=== PATIENT | male | born 1965 | race Caucasian/White ===

== ENCOUNTER 2016-12-24 06:54 | Inpatient (IN) | payer MEDICARE, OTHER ==
[2016-12-24] MEDS ORDERED: methylPREDNISolone SOD SUCCI 125 MG/2 ML VIAL IV STA (07:16)
[2016-12-24] MEDS ORDERED: MAGNESIUM SULFATE-D5W PMX 1 GM in DEXTROSE/WATER 1 100ML.BAG IVPB STA (07:16)
[2016-12-24] MEDS ORDERED: IPRATROPIUM-ALBUTEROL 3 ML NEB INHALATION STA ×2 (07:16→09:53)
[2016-12-24] MEDS ORDERED: SODIUM CHLORIDE 0.9% 1,000 ML IV STA (07:16)
--- NOTE | 2016-12-24 07:19 | ED ---
SOB HPI - General Chief Complaint: Shortness of Breath Stated Complaint: diff breathing Time Seen by Provider: 12/24/16 07:00 Source: patient, EMS, RN notes reviewed Mode of arrival: EMS Limitations: no limitations - History of Present Illness Initial Comments: This a 51-year-old male with a history of COPD who smokes 1-1/2 packs of cigarettes per day who presents with complaints of shortness of breath and not feeling well he complains of sweats associated night cough of clear white phlegm no chest pain no nausea vomiting. He was seen several days ago placed on antibiotics and diagnosed with bronchitis but is acting better but he is of course not seizing to smoke either. He has no known heart disease or other symptoms. Other than to say he has tingling to his face and hands. MD Complaint: shortness of breath, cough - Related Data Home Medications Medication Instructions Recorded Confirmed Albuterol Sulfate [Ventolin HFA] 2 puff INHALATION RT-Q4H PRN 12/24/16 12/24/16 Azithromycin [Azithromycin] See Taper PO DAILY 12/24/16 12/24/16 Fluticasone/Salmeterol [Advair 1 puff INHALATION RT-BID 12/24/16 12/24/16 500-50 Diskus] Previous Rx's Medication Instructions Recorded predniSONE 20 mg PO BID #10 tab 12/24/16 Allergies Allergy/AdvReac Type Severity Reaction Status Date / Time Penicillins Allergy Anaphylaxis Verified 12/24/16 07:27 Review of Systems ROS Statement: Those systems with pertinent positive or pertinent negative responses have been documented in the HPI. ROS Other: All systems not noted in ROS Statement are negative. Past Medical History Past Medical History: COPD History of Any Multi-Drug Resistant Organisms: None Reported Past Surgical History: No Surgical Hx Reported Smoking Status: Current every day smoker Past Alcohol Use History: None Reported Past Drug Use History: None Reported General Exam - General Exam Comments Initial Comments: This is a well-developed well-nourished awake alert oriented 3 male Limitations: no limitations General appearance: anxious, in distress Head exam: Present: atraumatic, normocephalic, normal inspection Eye exam: Present: normal appearance, PERRL, EOMI. Absent: scleral icterus, conjunctival injection, periorbital swelling ENT exam: Present: mucous membranes dry Neck exam: Present: normal inspection. Absent: tenderness, meningismus, lymphadenopathy Respiratory exam: Present: accessory muscle use, decreased breath sounds. Absent: respiratory distress, wheezes, rales, rhonchi, stridor Cardiovascular Exam: Present: regular rate, normal rhythm, normal heart sounds. Absent: systolic murmur, diastolic murmur, rubs, gallop, clicks GI/Abdominal exam: Present: soft, normal bowel sounds. Absent: distended, tenderness, guarding, rebound, rigid Extremities exam: Present: normal inspection, full ROM, normal capillary refill. Absent: tenderness, pedal edema, joint swelling, calf tenderness Back exam: Present: normal inspection Neurological exam: Present: alert, oriented X3, CN II-XII intact Psychiatric exam: Present: normal affect, normal mood Skin exam: Present: warm, dry, intact, normal color. Absent: rash Course Vital Signs 12/24/16 12/24/16 12/24/16 06:58 07:33 07:46 Temperature 98.5 F Pulse Rate 105 H 92 88 Respiratory 20 Rate Blood Pressure 155/83 O2 Sat by Pulse 95 Oximetry 12/24/16 07:50 Temperature Pulse Rate 94 Respiratory 22 Rate Blood Pressure 126/78 O2 Sat by Pulse 95 Oximetry - Reevaluation(s) Reevaluation #1: 12/24/16 07:19 We did discuss the need for smoking cessation and risks factors for heart disease lung disease cancers such as breast cancer lung cancer as well as an organ damage. This lasted 3.1 minutes Reevaluation #2: 12/24/16 09:53 I did reevaluate the patient he still somewhat dyspneic refill better he states he was able to the bathroom without becoming dyspneic. He still demonstrates wheezing and diminished breath sounds. I did a long discussion with patient regarding the findings thus far he does have an elevated d-dimer I did recommend due to his current clinical state that he be admitted to the hospital and get a CAT scan or a VQ scan patient is refusing to do either at this time. I did discuss risks with him he does accept the risks of being discharged. I did perform the Prove or disprove that he may not have a pulmonary embolism. He is willing to take the responsibility. He was invited to come back at any time. He is otherwise a follow-up with his doctor and return when necessary Medical Decision Making - Lab Data Result diagrams: 12/24/16 07:38 12/24/16 07:38 Lab Results 12/24/16 12/24/16 12/24/16 Range/Units 07:38 07:38 07:38 WBC 6.9 (3.8-10.6) k/uL RBC 4.36 (4.30-5.90) m/uL Hgb 13.5 (13.0-17.5) gm/dL Hct 39.9 (39.0-53.0) % MCV 91.5 (80.0-100.0) fL MCH 31.1 (25.0-35.0) pg MCHC 34.0 (31.0-37.0) g/dL RDW 14.2 (11.5-15.5) % Plt Count 174 (150-450) k/uL Neutrophils % 67 % Lymphocytes % 22 % Monocytes % 7 % Eosinophils % 1 % Basophils % 0 % Neutrophils # 4.6 (1.3-7.7) k/uL Lymphocytes # 1.5 (1.0-4.8) k/uL Monocytes # 0.5 (0-1.0) k/uL Eosinophils # 0.1 (0-0.7) k/uL Basophils # 0.0 (0-0.2) k/uL PT (9.0-12.0) sec INR (<1.1) APTT (22.0-30.0) sec D-Dimer (<0.60) mg/L FEU Sodium 141 (137-145) mmol/L Potassium 3.8 (3.5-5.1) mmol/L Chloride 105 (98-107) mmol/L Carbon Dioxide 27 (22-30) mmol/L Anion Gap 9 mmol/L BUN 20 (9-20) mg/dL Creatinine 0.77 (0.66-1.25) mg/dL Est GFR (MDRD) Af Amer >60 (>60 ml/min/1.73 sqM) Est GFR (MDRD) Non-Af >60 (>60 ml/min/1.73 sqM) Glucose 125 H (74-99) mg/dL Calcium 8.4 (8.4-10.2) mg/dL Magnesium 2.0 (1.6-2.3) mg/dL Total Bilirubin 0.4 (0.2-1.3) mg/dL AST 14 L (17-59) U/L ALT 25 (21-72) U/L Alkaline Phosphatase 84 (38-126) U/L Total Creatine Kinase 107 (55-170) U/L CK-MB (CK-2) 1.5 (0.0-2.4) ng/mL CK-MB (CK-2) Rel Index 1.4 Troponin I <0.012 (0.000-0.034) ng/mL NT-Pro-B Natriuret Pep pg/mL Total Protein 6.4 (6.3-8.2) g/dL Albumin 3.8 (3.5-5.0) g/dL 12/24/16 12/24/16 Range/Units 07:38 07:38 WBC (3.8-10.6) k/uL RBC (4.30-5.90) m/uL Hgb (13.0-17.5) gm/dL Hct (39.0-53.0) % MCV (80.0-100.0) fL MCH (25.0-35.0) pg MCHC (31.0-37.0) g/dL RDW (11.5-15.5) % Plt Count (150-450) k/uL Neutrophils % % Lymphocytes % % Monocytes % % Eosinophils % % Basophils % % Neutrophils # (1.3-7.7) k/uL Lymphocytes # (1.0-4.8) k/uL Monocytes # (0-1.0) k/uL Eosinophils # (0-0.7) k/uL Basophils # (0-0.2) k/uL PT 10.2 (9.0-12.0) sec INR 1.0 (<1.1) APTT 24.8 (22.0-30.0) sec D-Dimer 0.85 H (<0.60) mg/L FEU Sodium (137-145) mmol/L Potassium (3.5-5.1) mmol/L Chloride (98-107) mmol/L Carbon Dioxide (22-30) mmol/L Anion Gap mmol/L BUN (9-20) mg/dL Creatinine (0.66-1.25) mg/dL Est GFR (MDRD) Af Amer (>60 ml/min/1.73 sqM) Est GFR (MDRD) Non-Af (>60 ml/min/1.73 sqM) Glucose (74-99) mg/dL Calcium (8.4-10.2) mg/dL Magnesium (1.6-2.3) mg/dL Total Bilirubin (0.2-1.3) mg/dL AST (17-59) U/L ALT (21-72) U/L Alkaline Phosphatase (38-126) U/L Total Creatine Kinase (55-170) U/L CK-MB (CK-2) (0.0-2.4) ng/mL CK-MB (CK-2) Rel Index Troponin I (0.000-0.034) ng/mL NT-Pro-B Natriuret Pep 378 pg/mL Total Protein (6.3-8.2) g/dL Albumin (3.5-5.0) g/dL - EKG Data -: EKG Interpreted by [facility] EKG shows normal: sinus rhythm, axis, intervals, QRS complexes, ST-T waves ( Normal sinus rhythm rate 95. Interval 156 QRS duration 108 daily since QTC of 356/447 this is normal. EKG.) Rate: normal Disposition Clinical Impression: Acute exacerbation of chronic obstructive airways disease Disposition: Left Against Medical Advice Condition: Stable Instructions: COPD (Chronic Obstructive Pulmonary Disease) (ED) Prescriptions: predniSONE 20 mg PO BID #10 tab Referrals: Russell De Leon [facility] [REFERRING] - 1-2 days
[2016-12-24 08:01] LABS: Basophils % (A) 0 %; CH 30.4; CHCM 33.4; Eosinophils # (A) 0.1 k/uL (0-0.7); Eosinophils % (A) 1 %; HCT 39.9 % (39.0-53.0); HDW 2.83; HGB 13.5 gm/dL (13.0-17.5); Luc # (Auto) 0.16; Luc % (Auto) 2; Lymphocytes # (A) 1.5 k/uL (1.0-4.8); Lymphocytes % (A) 22 %; MCH 31.1 pg (25.0-35.0); MCV 91.5 fL (80.0-100.0); Mean Platelet Volume 7.2; Monocytes # (A) 0.5 k/uL (0-1.0); Monocytes % (A) 7 %; Neutrophils # (A) 4.6 k/uL (1.3-7.7); Neutrophils % (A) 67 %; RBC 4.36 m/uL (4.30-5.90); RDW 14.2 % (11.5-15.5); WBC 6.9 k/uL (3.8-10.6)
[2016-12-24 08:12] LABS: ALT 25 U/L (21-72); AST 14 U/L (17-59); Alkaline Phosphatase 84 U/L (38-126); Anion Gap 9 mmol/L; Blood Urea Nitrogen 20 mg/dL (9-20); Calcium 8.4 mg/dL (8.4-10.2); Carbon Dioxide 27 mmol/L (22-30); Chloride 105 mmol/L (98-107); Glucose 125 mg/dL (74-99); Non-African American GFR(MDRD) >60 (>60 ml/min/1.73 sqM); Potassium 3.8 mmol/L (3.5-5.1); Sodium 141 mmol/L (137-145); Total Bilirubin 0.4 mg/dL (0.2-1.3); Total Protein 6.4 g/dL (6.3-8.2)
[2016-12-24 08:15] LABS: Partial Thromboplastin Time 24.8 sec (22.0-30.0); Prothrombin Time 10.2 sec (9.0-12.0)
--- NOTE | 2016-12-24 08:17 | XR ---
EXAMINATION TYPE: XR chest 2V DATE OF EXAM: 12/24/2016 7:57 AM COMPARISON: NONE HISTORY: Difficulty in breathing TECHNIQUE: Frontal and lateral views of the chest are obtained. FINDINGS: There is no focal air space opacity, pleural effusion, or pneumothorax seen. The cardiac silhouette size is within normal limits. The osseous structures are intact. IMPRESSION: No acute cardiopulmonary process.
[2016-12-24 08:26] LABS: Creatine Kinase 107 U/L (55-170)
[2016-12-24 08:40] LABS: Creatine Kinase MB 1.5 ng/mL (0.0-2.4); Troponin I <0.012 ng/mL (0.000-0.034)
[2016-12-24] MEDS ORDERED: RX INFO: IV CONTRAST WAS GIVEN 1 EACH MISC MISCELLANE PRN (09:28)
[2016-12-24] MEDS ORDERED: diphenhydrAMINE 50 MG/ML 1 ML VIAL IVP STA (10:22)
[2016-12-24] MEDS ORDERED: FAMOTIDINE 20 MG/2 ML VIAL IV STA (10:22)
--- NOTE | 2016-12-24 10:22 | ED ---
Medical Decision Making - Medical Decision Making The patient now agrees to get the CAT scan had gotten up to the bathroom and felt dyspneic. The patient's CAT scan is negative for acute evidence of pulmonary and wasn't. Patient still very dyspneic and exertional dyspnea is demonstrated. The patient has agreed to be admitted at this time. Due to the hospitalist service. - Lab Data Result diagrams: 12/24/16 07:38 12/24/16 07:38 Lab Results 12/24/16 12/24/16 12/24/16 Range/Units 07:38 07:38 07:38 WBC 6.9 (3.8-10.6) k/uL RBC 4.36 (4.30-5.90) m/uL Hgb 13.5 (13.0-17.5) gm/dL Hct 39.9 (39.0-53.0) % MCV 91.5 (80.0-100.0) fL MCH 31.1 (25.0-35.0) pg MCHC 34.0 (31.0-37.0) g/dL RDW 14.2 (11.5-15.5) % Plt Count 174 (150-450) k/uL Neutrophils % 67 % Lymphocytes % 22 % Monocytes % 7 % Eosinophils % 1 % Basophils % 0 % Neutrophils # 4.6 (1.3-7.7) k/uL Lymphocytes # 1.5 (1.0-4.8) k/uL Monocytes # 0.5 (0-1.0) k/uL Eosinophils # 0.1 (0-0.7) k/uL Basophils # 0.0 (0-0.2) k/uL PT (9.0-12.0) sec INR (<1.1) APTT (22.0-30.0) sec D-Dimer (<0.60) mg/L FEU Sodium 141 (137-145) mmol/L Potassium 3.8 (3.5-5.1) mmol/L Chloride 105 (98-107) mmol/L Carbon Dioxide 27 (22-30) mmol/L Anion Gap 9 mmol/L BUN 20 (9-20) mg/dL Creatinine 0.77 (0.66-1.25) mg/dL Est GFR (MDRD) Af Amer >60 (>60 ml/min/1.73 sqM) Est GFR (MDRD) Non-Af >60 (>60 ml/min/1.73 sqM) Glucose 125 H (74-99) mg/dL Calcium 8.4 (8.4-10.2) mg/dL Magnesium 2.0 (1.6-2.3) mg/dL Total Bilirubin 0.4 (0.2-1.3) mg/dL AST 14 L (17-59) U/L ALT 25 (21-72) U/L Alkaline Phosphatase 84 (38-126) U/L Total Creatine Kinase 107 (55-170) U/L CK-MB (CK-2) 1.5 (0.0-2.4) ng/mL CK-MB (CK-2) Rel Index 1.4 Troponin I <0.012 (0.000-0.034) ng/mL NT-Pro-B Natriuret Pep pg/mL Total Protein 6.4 (6.3-8.2) g/dL Albumin 3.8 (3.5-5.0) g/dL 12/24/16 12/24/16 Range/Units 07:38 07:38 WBC (3.8-10.6) k/uL RBC (4.30-5.90) m/uL Hgb (13.0-17.5) gm/dL Hct (39.0-53.0) % MCV (80.0-100.0) fL MCH (25.0-35.0) pg MCHC (31.0-37.0) g/dL RDW (11.5-15.5) % Plt Count (150-450) k/uL Neutrophils % % Lymphocytes % % Monocytes % % Eosinophils % % Basophils % % Neutrophils # (1.3-7.7) k/uL Lymphocytes # (1.0-4.8) k/uL Monocytes # (0-1.0) k/uL Eosinophils # (0-0.7) k/uL Basophils # (0-0.2) k/uL PT 10.2 (9.0-12.0) sec INR 1.0 (<1.1) APTT 24.8 (22.0-30.0) sec D-Dimer 0.85 H (<0.60) mg/L FEU Sodium (137-145) mmol/L Potassium (3.5-5.1) mmol/L Chloride (98-107) mmol/L Carbon Dioxide (22-30) mmol/L Anion Gap mmol/L BUN (9-20) mg/dL Creatinine (0.66-1.25) mg/dL Est GFR (MDRD) Af Amer (>60 ml/min/1.73 sqM) Est GFR (MDRD) Non-Af (>60 ml/min/1.73 sqM) Glucose (74-99) mg/dL Calcium (8.4-10.2) mg/dL Magnesium (1.6-2.3) mg/dL Total Bilirubin (0.2-1.3) mg/dL AST (17-59) U/L ALT (21-72) U/L Alkaline Phosphatase (38-126) U/L Total Creatine Kinase (55-170) U/L CK-MB (CK-2) (0.0-2.4) ng/mL CK-MB (CK-2) Rel Index Troponin I (0.000-0.034) ng/mL NT-Pro-B Natriuret Pep 378 pg/mL Total Protein (6.3-8.2) g/dL Albumin (3.5-5.0) g/dL Critical Care Time Critical Care Time: Yes Critical Care Time: 31 minutes of critical care time which includes the initial history physical labs and x-rays multiple re-evaluations the patient multiple discussion with the patient regarding various findings. Discussion with the admitting physician admission orders and documentation of the above. Disposition Clinical Impression: Acute exacerbation of chronic obstructive airways disease, Respiratory distress , Failure of outpatient treatment Disposition: ADMITTED IP TO THIS HOSP Condition: Stable Instructions: COPD (Chronic Obstructive Pulmonary Disease) (ED) Prescriptions: predniSONE 20 mg PO BID #10 tab Referrals: Russell De Leon NPC [REFERRING] - 1-2 days
--- NOTE | 2016-12-24 10:55 | CT ---
EXAMINATION TYPE: CT angio chest DATE OF EXAM: 12/24/2016 10:51 AM COMPARISON: NONE HISTORY: Patient poor historian. Patient complains of difficulty breathing. CT DLP: 341.3 mGycm CONTRAST: CT chest with contrast and 3D reconstruction with MIP imaging is performed with IV Contrast, patient injected with 100 mL of Omnipaque 350. Contrast-enhanced CT of the chest was performed through the course of the pulmonary arteries with brock g and mediastinal window settings submitted. 3D reconstruction with MIP imaging was also performed. PULMONARY ARTERIES: The pulmonary arteries and their major tributaries are patent. I do not see vivien dence for sizable filling defect to suggest pulmonary embolic process. LUNGS: The lungs are clear and free of infiltrate. No evidence for atelectasis. No pulmonary nodule or mass is detected. No pleural effusion. MEDIASTINUM: Thoracic aorta is of normal caliber . The heart is not enlarged. No evidence for media stinal mass. No mediastinal lymph nodes greater than 1cm. HILAR STRUCTURES: No evidence for mass. No hilar lymph nodes greater than 1 cm. UPPER ABDOMEN: No significant abnormality is seen. IMPRESSION: 1. No evidence for Pulmonary embolism at this time.
[2016-12-24] MEDS ORDERED: IPRATROPIUM-ALBUTEROL 3 ML NEB INHALATION PRN (12:24)
[2016-12-24] MEDS ORDERED: SODIUM CHLORIDE 0.9% 1,000 ML IV SCH (12:30)
[2016-12-24 13:18] VITALS: BP 120/74; PULSE 74; RESP 17; TEMP 98.2
[2016-12-24] MEDS ORDERED: methylPREDNISolone SOD SUCCI 125 MG/2 ML VIAL IV SCH (18:00)
--- NOTE | 2016-12-24 21:47 | HP ---
A 51-year-old with a history of COPD, continues to smoke 1 to 1-1/2 packs cigarettes per day, came in with complaints of shortness of breath and patient was wheezing apparently on admission and patient did get short of breath, because of which patient was admitted. On evaluation, patient's wheezing significantly improved and the patient is ambulating in the hallway, saturating well and I am discharging the patient today. Patient had a CT angio of the chest because of minimally elevated D-dimer, which did not show any significant abnormality. Patient will follow up with his primary doctor as an outpatient and as long as the patient does not smoke again, I believe patient is going to do okay. Patient continues to smoke. Extensive counseling regarding that was provided. Patient is taking erythromycin at home, because of which I am changing it to levofloxacin 500 p.o. daily. Patient was complaining of cough with green sputum production. Patient will be given additionally Spiriva for his COPD along with levofloxacin. Patient will follow with Dr. Russell De Leon tomorrow as scheduled. REVIEW OF SYSTEMS: CONSTITUTIONAL: No fever, no malaise, no fatigue. HEENT: No recent visual problems or hearing problems. Denied any sore throat. CARDIOVASCULAR: No chest pain, orthopnea, PND, no palpitations, no syncope. PULMONARY: As described in HPI. GASTROINTESTINAL: No diarrhea, no nausea, no vomiting, no abdominal pain. Normoactive bowel sounds. NEUROLOGICAL: No headaches, no weakness, no numbness. HEMATOLOGICAL: Denies any bleeding or petechiae. GENITOURINARY: Denies any burning micturition, frequency, or urgency. MUSCULOSKELETAL/RHEUMATOLOGICAL: Denies any joint pain, swelling, or any muscle pain. ENDOCRINE: Denies any polyuria or polydipsia. The rest of the 14 point review of systems is negative. Home medications include: 1. Albuterol. 2. Azithromycin. 3. Fluticasone. 4. Solu-Medrol. 5. Penicillin. PAST MEDICAL HISTORY: Significant for COPD. Patient continues to smoke. Denied any alcohol abuse or any drug abuse. FAMILY HISTORY: Significant for COPD, diabetes mellitus and hypertension. PHYSICAL EXAMINATION: VITAL SIGNS: Temperature 98.2, pulse of 88, respiratory rate of 17, blood pressure is 123/67. Saturating at 100% on room air. GENERAL: The patient is alert and oriented x3, not in any acute distress. Well developed, well nourished. HEENT: Pupils are round and equally reacting to light. EOMI. No scleral icterus. No conjunctival pallor. Normocephalic, atraumatic. No pharyngeal erythema. No thyromegaly. CARDIOVASCULAR: S1 and S2 present. No murmurs, rubs, or gallops. PULMONARY: Minimally decreased air entry. No wheezing was appreciated. No crackles were appreciated. ABDOMEN: Soft, nontender, nondistended, normoactive bowel sounds. No palpable organomegaly. MUSCULOSKELETAL: No joint swelling or deformity. EXTREMITIES: No cyanosis, clubbing, or pedal edema. NEUROLOGICAL: Gross neurological examination did not reveal any focal deficits. SKIN: No rashes. LABORATORY DATA: CBC, CMP, essentially within normal limits and CT angio of the chest as mentioned above. Patient was tachycardic when he came in, which improved. ASSESSMENT AND PLAN: Chronic obstructive pulmonary disease with acute exacerbation. Patient will be discharged today with systemic steroids, inhalational treatments and patient will be discharged on weaning dose of steroids. ( ) will be added. Levofloxacin for 5 days will be provided as well. Patient will follow with Dr. Russell De Leon tomorrow as scheduled. Activity as tolerated. Regular diet.
[2016-12-25] MEDS ORDERED: NICOTINE 21MG/24HR PATCH TRANSDERM SCH (09:00)
[2016-12-25] MEDS ORDERED: LEVOFLOXACIN 500 MG TAB PO SCH (09:00)
== END 2016-12-24 17:15 | disposition home or self-care (01) | DRG 192 ==
LOC: EC 06:54 → 3SUR 12:24
PROVIDERS: ADMIT Hospitalist; ATTEND Hospitalist
DX: J44.1 Chronic obstructive pulmonary disease with (acute) exacerbation (principal); F17.210 Nicotine dependence, cigarettes, uncomplicated; Z79.52 Long term (current) use of systemic steroids; Z79.899 Other long term (current) drug therapy; Z88.0 Allergy status to penicillin; Z82.49 Family history of ischemic heart disease and other diseases of the circulatory system
CPT/HCPCS: 36415; 71020; 71275; 80053; 82550; 82553; 83735; 83880; 84484; 85025; 85379; 85610; 85730; 87040; 93005; 94640

== ENCOUNTER 2021-12-01 05:03 | Emergency (ER) | payer MEDICARE, OTHER ==
[2021-12-01 05:25] VITALS: TEMP 98.8
[2021-12-01] MEDS ORDERED: IPRATROPIUM-ALBUTEROL 3 ML NEB INHALATION STA (06:41)
[2021-12-01] MEDS ORDERED: LORazepam 2 MG/ML INJ IV STA ×2 (06:41→07:20)
[2021-12-01 07:01] LABS: ABG Base Excess 19.3 mmol/L; ABG Oxygen Saturation 87.6 % (94-97); ABG PH 7.26 (7.35-7.45); ABG PO2 62 mmHg (83-108); ABG TCO2 50 mmol/L (19-24); Allen Test Performed? Yes
[2021-12-01 07:30] LABS: ABG HCO3 46 mmol/L (21-25); ABG PCO2 103 mmHg (35-45)
[2021-12-01] MEDS ORDERED: KETAMINE 10 MG/ML 20 ML VIAL IV STA ×2 (07:49→08:47)
--- NOTE | 2021-12-01 08:06 | CT ---
EXAMINATION TYPE: CT brain wo con DATE OF EXAM: 12/01/2021 COMPARISON: None available HISTORY: altered mental status CT DLP: 1111.4 mGycm Automated exposure control for dose reduction was used. Helical imaging through the brain. FINDINGS: There is abnormal increased attenuation present within the posterior temporal lobe on the right, ill- defined but measuring approximately 16 mm in AP dimension by 11 mm in transverse. There is no definit e hydrocephalus. Rolon-white differentiation is maintained. The calvarium is intact. Paranasal sinuses and mastoid air cells as visualized are unremarkable. IMPRESSION: DIFFERENTIAL INCLUDES FOCAL HEMORRHAGE, consider brain MRI
[2021-12-01 08:20] LABS: ABG Oxygen Saturation 99.3 % (94-97); ABG PO2 283 mmHg (83-108); Allen Test Performed? Yes
[2021-12-01 08:26] LABS: ABG PCO2 >120 mmHg (35-45); ABG PH 7.18 (7.35-7.45)
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
[2021-12-01] MEDS ORDERED: ROCURONIUM 10 MG/ML (5 ML VIAL) IV STA (08:47)
[2021-12-01 09:21] VITALS: BP 145/98; PULSE 90; RESP 20
--- NOTE | 2021-12-01 09:51 | XR ---
EXAMINATION TYPE: XR chest 1V portable DATE OF EXAM: 12/01/2021 COMPARISON: Chest x-ray dated 12/24/2016 HISTORY: Intubated TECHNIQUE: Single frontal view of the chest is obtained. FINDINGS: Endotracheal tube shows the distal extent at the level the proximal right mainstem bronchu s. NG tube is in place. Distal tip is not included on exam. There is no evident pneumothorax or pleur al effusion. Cardiac silhouette is within normal limits accounting for technique. Bones are stable. IMPRESSION: Right mainstem intubation, report relayed to the referring clinician to Dr. Sanchez at t he time of interpretation.
== END 2021-12-01 09:28 | disposition other institution (70) ==
LOC: EC 05:03
DX: Z88.0 Allergy status to penicillin (principal); J44.9 Chronic obstructive pulmonary disease, unspecified; J96.02 Acute respiratory failure with hypercapnia; S06.360A Traumatic hemorrhage of cerebrum, unspecified, without loss of consciousness, initial encounter; I50.9 Heart failure, unspecified
CPT/HCPCS: 94660; 94640; 36600; 94002; 82805; 71045; 70450; 99291; 96374; 96375; 96376; J2060; 96361

== ENCOUNTER 2022-11-28 22:56 | Inpatient (IN) | payer MEDICARE, OTHER ==
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
[2022-11-28 23:52] LABS: VBG PH 7.35 (7.31-7.41)
[2022-11-29] MEDS ORDERED: NALOXONE 0.4 MG/ML 1 ML VIAL IVP PRN (00:01)
[2022-11-29] MEDS ORDERED: IPRATROPIUM-ALBUTEROL 3 ML NEB INHALATION PRN (00:01)
[2022-11-29] MEDS: methylPREDNISolone SOD SUCCI 125 MG/2 ML VIAL IV SCH ×4 (05:46→23:29)
[2022-11-29 05:54] LABS: Glucose,Whole Blood 182 mg/dL (70-110)
[2022-11-29] MEDS: IPRATROPIUM-ALBUTEROL 3 ML NEB INHALATION SCH ×4 (08:01→21:20)
--- NOTE | 2022-11-29 10:58 | XR ---
EXAMINATION TYPE: XR chest 1V portable DATE OF EXAM: 11/29/2022 COMPARISON: 12/19/2021 HISTORY: COPD TECHNIQUE: Single frontal view of the chest is obtained. FINDINGS: The lungs are clear of airspace opacity or abnormal interstitial opacity. There is no pleural effusion or pneumothorax. The heart is mildly prominent in size but the pulmonary vasculature does not appear congested. The osseous structures are grossly intact. IMPRESSION: Mild cardiomegaly without acute cardiopulmonary disease. IMPRESSION: No acute process.
[2022-11-29] MEDS ORDERED: DEXTROSE 50% SYRINGE 50 ML IVP PRN ×2 (11:27)
[2022-11-29 11:50] LABS: Glucose,Whole Blood 276 mg/dL (70-110)
--- NOTE | 2022-11-29 11:55 | P.CNPUL ---
History of Present Illness Consult date: 11/29/22 Requesting physician: Romero Donahue Reason for consult: COPD Chief complaint: Shortness of breath cough and wheezing History of present illness: This is a 57-year-old white male with history of severe COPD, chronic hypoxic respiratory failure, patient normally sees Dr. Angel manzano for his underlying COPD, according to the patient he quit smoking over 3 years ago. Patient is maintained mostly on bronchodilators/inhalers at home, does not know the names of his inhalers, but he is not prednisone/steroids dependent. Patient was seen at [facility] with mostly a few days' history of increased shortness of breath cough and wheezing. His initial ABG at [facility] showed a pCO2 of 111 pH of 7.11, patient was placed on BiPAP, and arrangements were made to transfer the patient down to [facility]. Apparently the patient had a CT angiogram of the chest while at [facility], and it showed mostly COPD changes, no evidence of pulmonary embolism. When patient was transferred to our facility, apparently was placed on relatively high FiO2 and repeat ABG showed a pO2 of 283, pCO2 of 120 and pH of 7.18. Patient was placed on lower FiO2, repeat venous gas showed a pCO2 in the 77 range and pH of 7.35 patient was admitted to the regular medical floor, I saw the patient on nasal cannula, he is actually on 3 L nasal cannula with O2 saturation 91%, does not seem to be in any form of distress, does not seem to be obtunded, refusing to use his BiPAP, hence I recommended that we continue patient on nasal cannula for now, there is a BiPAP at bedside if necessary. And I recommended treatment with bronchodilators, and antibiotics. The rest of his labs including complete metabolic profile and CBC were basically unremarkable except for low platelets/99,000 Review of Systems Constitutional: Negative patient denies any fever chills weight loss. HEENT: Negative Pulmonary: As noted in HPI Cardiac: Negative GI: Negative Genitourinary: Negative Musculoskeletal: Negative Endocrine: Negative patient is known to have history of type 2 diabetes. Psychiatric: History of depression/bipolar disorder Neurologic: Negative Skin: Negative Hematologic: No clotting bleeding or bruising. 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 "GAINED 20# IN 2-3WEEKS". ' History of Any Multi-Drug Resistant Organisms: None Reported Past Surgical History: Adenoidectomy, Hernia Repair, Tonsillectomy Additional Past Surgical History / Comment(s): HALLEY ING HERNIA REPAIR Past Anesthesia/Blood Transfusion Reactions: No Reported Reaction Past Psychological History: Anxiety Additional Psychological History / Comment(s): PT STATED HE LIVES ALONE IN A [employer] [place] HOME THAT HAS 3 STEPS TO NAVIGATE. PETS: 1 DOG, 4 CATS. NO OUTSIDE SERVICES RECIEVED, PT INDEPENDANT. NO MEDICAL EQUIPMENT. Smoking Status: Former smoker Past Alcohol Use History: None Reported Additional Past Alcohol Use History / Comment(s): STARTED SMOKING AT AGE 17, SMOKED 1.5 PPD. STOPPED IN 2019 Past Drug Use History: None Reported - Past Family History Mother Family Medical History: COPD, Diabetes Mellitus, Hypertension Father Family Medical History: COPD, Diabetes Mellitus, Hypertension Medications and Allergies Home Medications Medication Instructions Recorded Confirmed Type Albuterol Sulfate [Ventolin HFA] 2 puff INHALATION RT-Q6H PRN 12/24/16 11/29/22 History ALPRAZolam [Xanax] 0.25 mg PO TID PRN 11/29/22 11/29/22 History ARIPiprazole [Abilify] 10 mg PO HS 11/29/22 11/29/22 History Atorvastatin [Lipitor] 20 mg PO HS 11/29/22 11/29/22 History Escitalopram [Lexapro] 20 mg PO DAILY 11/29/22 11/29/22 History Finasteride [Proscar] 5 mg PO HS 11/29/22 11/29/22 History Furosemide [Lasix] 40 mg PO DAILY 11/29/22 11/29/22 History Ipratropium-Albuterol Nebulize 3 ml INHALATION RT-QID PRN 11/29/22 11/29/22 History [Duoneb 0.5 mg-3 mg/3 ml Soln] Losartan [Cozaar] 25 mg PO DAILY 11/29/22 11/29/22 History Montelukast [Singulair] 10 mg PO HS 11/29/22 11/29/22 History Omeprazole 20 mg PO BID 11/29/22 11/29/22 History Pioglitazone [Actos] 15 mg PO HS 11/29/22 11/29/22 History Potassium Chloride ER [K-Dur 20] 20 meq PO BID 11/29/22 11/29/22 History Tamsulosin [Flomax] 0.4 mg PO HS 11/29/22 11/29/22 History Vibegron [Gemtesa] 75 mg PO HS 11/29/22 11/29/22 History carvediloL [Coreg] 6.25 mg PO BID 11/29/22 11/29/22 History metFORMIN HCL [Glucophage] 500 mg PO BID 11/29/22 11/29/22 History sitaGLIPtin [Januvia] 100 mg PO DAILY 11/29/22 11/29/22 History Allergies Allergy/AdvReac Type Severity Reaction Status Date / Time Penicillins Allergy Anaphylaxis Verified 11/29/22 10:47 Physical Exam Vitals: Vital Signs Temp Pulse Pulse Resp BP BP Pulse Ox 11/29/22 11:28 85 11/29/22 11:14 84 11/29/22 08:12 85 11/29/22 08:02 85 95 11/29/22 08:00 98.7 F 88 16 122/66 92 L 11/29/22 04:00 98.0 F 90 19 126/70 97 11/29/22 03:25 11/29/22 00:53 98.2 F 96 21 132/72 96 11/29/22 00:03 97 22 134/77 94 L 11/28/22 23:08 24 11/28/22 23:04 11/28/22 22:58 97.9 F 124 H 30 H 157/58 92 L FiO2 11/29/22 11:28 11/29/22 11:14 11/29/22 08:12 11/29/22 08:02 11/29/22 08:00 11/29/22 04:00 11/29/22 03:25 50 11/29/22 00:53 11/29/22 00:03 11/28/22 23:08 11/28/22 23:04 50 11/28/22 22:58 Intake and Output 11/28/22 11/29/22 11/29/22 22:59 06:59 14:59 Intake Total 358 Output Total 0 250 Balance 0 108 Intake: Oral 358 Output: Urine 0 250 Other: Voiding Method External Catheter External Catheter # Bowel Movements 1 Weight 115.67 kg 115.67 kg Physical Exam: Revealed 57-year-old white male, obese, on 3 L nasal cannula, not in distress. Head: Atraumatic, normocephalic. HEENT:[Neck is supple.] [No neck masses.] [No thyromegaly.] [No JVD.] Chest: [Symmetrical chest expansion diminished breath sound bilaterally no crackles or rhonchi or wheezes] Cardiac Exam: [Normal S1 and S2, no S3 gallop, no murmur.] Abdomen: [Soft, nontender, no megaly, no rebound, no guarding, normal bowel sounds.] Extremities: [No clubbing, no edema, no cyanosis.] Neurological Exam: Alert and oriented 3. [No focal neurologic deficit.] Psychiatric: Normal mood, affect and normal mental status examination. Skin: No rashes. Results - Laboratory Findings Abnormal lab findings: Abnormal Labs 11/28/22 11/29/22 23:25 05:53 VBG pCO2 77 H* VBG HCO3 41 H POC Glucose (mg/dL) 182 H - Diagnostic Findings Chest x-ray: image reviewed (Chest x-ray showed mild cardiomegaly no acute process) Assessment and Plan Assessment: Impression: Acute on chronic hypoxic and hypercapnic respiratory failure secondary to acute exacerbation of COPD acute tracheobronchitis, no clear-cut evidence of pneumonia X smoker Type 2 diabetes without complications History of closed head injury recommendation: Continue patient on nasal cannula, may use BiPAP if necessary. Keep it at bedside. Continue bronchodilators including DuoNeb Symbicort 160/4.52 puffs twice a day Oral antibiotics for bronchitis no evidence of pneumonia Resume home meds GI and DVT prophylaxis avoid heparin for now since the platelets are low. We will continue to follow Time with Patient: Greater than 30
[2022-11-29] MEDS: INSULIN ASPART (NovoLOG) 100 UNIT/ML VIAL SQ SCH ×2 (12:55→17:01)
[2022-11-29] MEDS: LINAGLIPTIN 5 MG TABLET PO SCH (12:55)
[2022-11-29] MEDS: ESCITALOPRAM 20 MG TAB PO SCH (12:55)
[2022-11-29] MEDS: PANTOPRAZOLE 40 MG TABLET PO SCH (12:55)
[2022-11-29] MEDS: carvediloL 6.25 MG TAB PO SCH ×2 (12:56→17:01)
[2022-11-29] MEDS: DOXYCYCLINE 100 MG CAP PO SCH ×2 (12:56→21:52)
[2022-11-29] MEDS: LOSARTAN 25 MG TAB PO SCH (12:56)
[2022-11-29] MEDS: ALPRAZolam 0.25 MG TAB PO PRN ×2 (14:14→21:53)
[2022-11-29] MEDS: ACETAMINOPHEN TAB 325 MG TAB PO PRN (14:15)
[2022-11-29 16:17] LABS: Glucose,Whole Blood 245 mg/dL (70-110)
[2022-11-29] MEDS: HEPARIN SODIUM,PORCINE/PF 5,000 UNIT/0.5 ML SYRINGE SQ SCH ×2 (17:01→23:29)
--- NOTE | 2022-11-29 17:27 | P.HPIM ---
History of Present Illness H&P Date: 11/29/22 Chief Complaint: Short of breath This is a 57-year-old patient who follows with Dr. Romero Donahue. Chronic stable medical conditions include diabetes, hypertension, prior head injury from farming accident, creatinine aneurysm, anxiety. Patient stopped smoking 3 years ago. Patient presented increasing shortness of breath last 2 days. Some cough sputum does drain color. Perspiration. Slightly decreased appetite. Tired rundown. Patient had been on BiPAP this morning. Patient was transferred here from [facility]. Patient had been retaining CO2. PE was ruled out. Review of systems: GEN.: Tired EYES: None HEENT: None NECK: None RESPIRATORY: As above CARDIOVASCULAR: None GASTROINTESTINAL: None GENITOURINARY: None MUSCULOSKELETAL: None LYMPHATICS: None HEMATOLOGICAL: None PSYCHIATRY: None NEUROLOGICAL: None Past medical history to include: COPD, diabetes, hypertension, head injury from farming accident, brain aneurysm, anxiety Social history: Lives alone. Started smoking at age of 17. Smoked for 37 years stopped in 2019. Smoked a pack and a half a day. No alcohol. Physical examination: VITAL SIGNS: 97.9, 124, 30, 157.58, 92% on BiPAP 50% on presentation GENERAL: BMI 33.6, reclining slightly short of breath. EYES: Pupils equal. Conjunctiva normal. HEENT: External appearance of nose and ears normal, oral cavity grossly normal. NECK: JVD not raised; masses not palpable. HEART: First and second heart sounds are normal; no edema. LUNGS: Respiratory rate increased; decreased breath sounds. ABDOMEN: Soft, nontender, liver spleen not palpable, no masses palpable. PSYCH: Alert and oriented x3; mood and affect normal. MUSCULOSKELETAL:No Clubbing/cyanosis;muscles-grossly intact NEUROLOGICAL: Cranial nerves grossly intact; no facial asymmetry, power and sensation grossly intact. LYMPHATICS: No lymph nodes palpable in the axilla and neck INVESTIGATIONS, reviewed in the clinical context: vBG pCO2 77 Assessment and plan: -Acute COPD exacerbation in a previous smoker -Acute hypoxic hypercapnic respiratory failure -Acute metabolic encephalopathy from hypoxic with delirium at the other hospital -Diabetes mellitus type 2, oral hypoglycemic Essential hypertension Depression and anxiety -GERD -Hyperlipidemia -BPH IV Solu-Medrol. Bronchodilators. Home medications resumed. Doxycycline added by pulmonary. BiPAP. Care was discussed with the patient. 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 "GAINED 20# IN 2-3WEEKS". ' History of Any Multi-Drug Resistant Organisms: None Reported Past Surgical History: Adenoidectomy, Hernia Repair, Tonsillectomy Additional Past Surgical History / Comment(s): HALLEY ING HERNIA REPAIR Past Anesthesia/Blood Transfusion Reactions: No Reported Reaction Past Psychological History: Anxiety Additional Psychological History / Comment(s): PT STATED HE LIVES ALONE IN A [employer] [facility] THAT HAS 3 STEPS TO NAVIGATE. PETS: 1 DOG, 4 CATS. NO OUTSIDE SERVICES RECIEVED, PT INDEPENDANT. NO MEDICAL EQUIPMENT. Smoking Status: Former smoker Past Alcohol Use History: None Reported Additional Past Alcohol Use History / Comment(s): STARTED SMOKING AT AGE 17, SMOKED 1.5 PPD. STOPPED IN 2019 Past Drug Use History: None Reported - Past Family History Mother Family Medical History: COPD, Diabetes Mellitus, Hypertension Father Family Medical History: COPD, Diabetes Mellitus, Hypertension Medications and Allergies Home Medications Medication Instructions Recorded Confirmed Type Albuterol Sulfate [Ventolin HFA] 2 puff INHALATION RT-Q6H PRN 12/24/16 11/29/22 History ALPRAZolam [Xanax] 0.25 mg PO TID PRN 11/29/22 11/29/22 History ARIPiprazole [Abilify] 10 mg PO HS 11/29/22 11/29/22 History Atorvastatin [Lipitor] 20 mg PO HS 11/29/22 11/29/22 History Escitalopram [Lexapro] 20 mg PO DAILY 11/29/22 11/29/22 History Finasteride [Proscar] 5 mg PO HS 11/29/22 11/29/22 History Furosemide [Lasix] 40 mg PO DAILY 11/29/22 11/29/22 History Ipratropium-Albuterol Nebulize 3 ml INHALATION RT-QID PRN 11/29/22 11/29/22 History [Duoneb 0.5 mg-3 mg/3 ml Soln] Losartan [Cozaar] 25 mg PO DAILY 11/29/22 11/29/22 History Montelukast [Singulair] 10 mg PO HS 11/29/22 11/29/22 History Omeprazole 20 mg PO BID 11/29/22 11/29/22 History Pioglitazone [Actos] 15 mg PO HS 11/29/22 11/29/22 History Potassium Chloride ER [K-Dur 20] 20 meq PO BID 11/29/22 11/29/22 History Tamsulosin [Flomax] 0.4 mg PO HS 11/29/22 11/29/22 History Vibegron [Gemtesa] 75 mg PO HS 11/29/22 11/29/22 History carvediloL [Coreg] 6.25 mg PO BID 11/29/22 11/29/22 History metFORMIN HCL [Glucophage] 500 mg PO BID 11/29/22 11/29/22 History sitaGLIPtin [Januvia] 100 mg PO DAILY 11/29/22 11/29/22 History Allergies Allergy/AdvReac Type Severity Reaction Status Date / Time Penicillins Allergy Anaphylaxis Verified 11/29/22 10:47 Physical Exam Vitals: Vital Signs Temp Pulse Pulse Resp BP BP Pulse Ox 11/29/22 11:14 84 11/29/22 08:12 85 11/29/22 08:02 85 95 11/29/22 08:00 98.7 F 88 16 122/66 92 L 11/29/22 04:00 98.0 F 90 19 126/70 97 11/29/22 03:25 11/29/22 00:53 98.2 F 96 21 132/72 96 11/29/22 00:03 97 22 134/77 94 L 11/28/22 23:08 24 11/28/22 23:04 11/28/22 22:58 97.9 F 124 H 30 H 157/58 92 L FiO2 11/29/22 11:14 11/29/22 08:12 11/29/22 08:02 11/29/22 08:00 11/29/22 04:00 11/29/22 03:25 50 11/29/22 00:53 11/29/22 00:03 11/28/22 23:08 11/28/22 23:04 50 11/28/22 22:58 Intake and Output 11/28/22 11/29/22 11/29/22 22:59 06:59 14:59 Intake Total 358 Output Total 0 250 Balance 0 108 Intake: Oral 358 Output: Urine 0 250 Other: Voiding Method External Catheter External Catheter # Bowel Movements 1 Weight 115.67 kg 115.67 kg Results Labs: Abnormal Lab Results - Last 24 Hours (Table) 11/28/22 11/29/22 Range/Units 23:25 05:53 VBG pCO2 77 H* (37-51) mmHg VBG HCO3 41 H (24-28) mmol/L POC Glucose (mg/dL) 182 H (70-110) mg/dL Thrombosis Risk Factor Assmnt - Choose All That Apply Any of the Below Risk Factors Present?: Yes Each Factor Represents 1 point: Abnormal pulmonary function (COPD), Age 41-60 years Thrombosis Risk Factor Assessment Total Risk Factor Score: 2 Thrombosis Risk Factor Assessment Level: Low Risk
[2022-11-29 20:14] LABS: Glucose,Whole Blood 235 mg/dL (70-110)
[2022-11-29] MEDS: SYMBICORT 160-4.5 MCG INHALER INHALATION SCH (21:20)
[2022-11-29] MEDS: metFORMIN 500 MG TAB PO SCH (21:53)
[2022-11-29] MEDS: FINASTERIDE 5 MG TAB PO SCH (21:53)
[2022-11-29] MEDS: ATORVASTATIN 20 MG TAB PO SCH (21:53)
[2022-11-29] MEDS: TAMSULOSIN 0.4 MG CAP.ER.24H PO SCH (21:53)
[2022-11-29] MEDS: NON FORMULARY DRUG (Vibegron [Gemtesa] 75 MG Tablet) PO SCH (21:56)
[2022-11-29] MEDS: MONTELUKAST 10 MG TAB PO SCH (22:00)
[2022-11-29] MEDS: PIOGLITAZONE 15 MG TAB PO SCH (23:29)
[2022-11-29] MEDS: ARIPiprazole 10 MG TAB PO SCH (23:29)
[2022-11-30 06:08] LABS: Glucose,Whole Blood 195 mg/dL (70-110)
[2022-11-30] MEDS: methylPREDNISolone SOD SUCCI 125 MG/2 ML VIAL IV SCH (06:43)
[2022-11-30] MEDS: INSULIN ASPART (NovoLOG) 100 UNIT/ML VIAL SQ SCH ×3 (06:44→16:41)
[2022-11-30] MEDS: carvediloL 6.25 MG TAB PO SCH ×2 (06:45→16:41)
[2022-11-30] MEDS: PANTOPRAZOLE 40 MG TABLET PO SCH (06:45)
[2022-11-30] MEDS: HEPARIN SODIUM,PORCINE/PF 5,000 UNIT/0.5 ML SYRINGE SQ SCH ×2 (08:14→16:41)
[2022-11-30] MEDS: ESCITALOPRAM 20 MG TAB PO SCH (08:14)
[2022-11-30] MEDS: metFORMIN 500 MG TAB PO SCH ×2 (08:14→22:18)
[2022-11-30] MEDS: LOSARTAN 25 MG TAB PO SCH (08:15)
[2022-11-30] MEDS: LINAGLIPTIN 5 MG TABLET PO SCH (08:15)
[2022-11-30] MEDS: SYMBICORT 160-4.5 MCG INHALER INHALATION SCH ×2 (08:46→20:36)
[2022-11-30] MEDS: IPRATROPIUM-ALBUTEROL 3 ML NEB INHALATION SCH ×4 (08:46→20:36)
[2022-11-30] MEDS: ACETAMINOPHEN TAB 325 MG TAB PO PRN (10:23)
[2022-11-30] MEDS: DOXYCYCLINE 100 MG CAP PO SCH ×2 (11:14→22:18)
[2022-11-30 11:37] LABS: Glucose,Whole Blood 403 mg/dL (70-110)
[2022-11-30] MEDS ORDERED: INSULIN ASPART (NovoLOG) 100 UNIT/ML VIAL SQ ONE (11:46)
--- NOTE | 2022-11-30 14:50 | P.PN ---
Subjective Progress Note Date: 11/30/22 Principal diagnosis: Shortness of breath. This is a 57-year-old white male with history of severe COPD, chronic hypoxic respiratory failure, patient normally sees Dr. Angel manzano for his underlying COPD, according to the patient he quit smoking over 3 years ago. Patient is maintained mostly on bronchodilators/inhalers at home, does not know the names of his inhalers, but he is not prednisone/steroids dependent. Patient was seen at [facility] with mostly a few days' history of increased shortness of breath cough and wheezing. His initial ABG at [facility] showed a pCO2 of 111 pH of 7.11, patient was placed on BiPAP, and arrangements were made to transfer the patient down to [facility]. Apparently the patient had a CT angiogram of the chest while at [facility], and it showed mostly COPD changes, no evidence of pulmonary embolism. When patient was transferred to our facility, apparently was placed on relatively high FiO2 and repeat ABG showed a pO2 of 283, pCO2 of 120 and pH of 7.18. Patient was placed on lower FiO2, repeat venous gas showed a pCO2 in the 77 range and pH of 7.35 patient was admitted to the regular medical floor, I saw the patient on nasal cannula, he is actually on 3 L nasal cannula with O2 saturation 91%, does not seem to be in any form of distress, does not seem to be obtunded, refusing to use his BiPAP, hence I recommended that we continue patient on nasal cannula for now, there is a BiPAP at bedside if necessary. And I recommended treatment with bronchodilators, and antibiotics. The rest of his labs including complete metabolic profile and CBC were basically unremarkable except for low platelets/99,000 Progress note dated 11/30/2022. 57-year-old male seen today in room 365. He was seen by my partner yesterday in consultation. The patient has a history of severe COPD, and sees one of the other pulmonary groups. Currently, the patient is on 3 L of oxygen. He is feeling better. He is able to speak in full sentences. Laboratory data today includes a glucose of 195. Venous blood gas shows a pCO2 of 77 and a pH 7.35. Chest x-ray shows no acute process. There is mild cardiomegaly. The patient was transferred to the hospital, from an outside community [facility]. Objective - Vital Signs Vital signs: Vital Signs Temp 98.1 F 11/30/22 11:13 Pulse 90 11/30/22 12:03 Resp 20 11/30/22 11:13 BP 128/55 11/30/22 11:13 Pulse Ox 92 L 11/30/22 11:13 FiO2 50 11/29/22 03:25 Intake & Output 11/29/22 11/30/22 11/30/22 18:59 06:59 18:59 Intake Total 1016 118 Output Total 1075 1600 120 Balance -59 -1600 -2 Intake: Oral 1016 118 Output: Urine 1075 1600 120 Other: Voiding Method External Catheter External Catheter External Catheter # Voids 1 # Bowel Movements 3 - Exam No acute distress, oriented 3. No conversational dyspnea or use of accessory muscles. The patient is currently on 3 L of oxygen. HEENT examination is grossly unremarkable. Neck supple. Full range of motion. No adenopathy thyromegaly or neck vein distention. Cardiovascular examination reveals regular rhythm rate. S1-S2 normal. No S3 or S4. No discernible murmur noted. Heart sounds are distant. Heart rate 90 bpm. Lungs reveal scattered expiratory rhonchi and wheezes. Breath sounds are equal. No crackles are appreciated. His 3 L saturation is 92%. Abdomen soft bowel sounds are heard. No masses or tenderness. Extremities are intact. No cyanosis clubbing or edema. Skin is without rash or lesion. Neurologic examination is brief but nonfocal. - Labs Labs: Abnormal Lab Results - Last 24 Hours (Table) 11/29/22 11/29/22 11/30/22 Range/Units 16:16 20:12 06:07 POC Glucose (mg/dL) 245 H 235 H 195 H (70-110) mg/dL 11/30/22 Range/Units 11:36 POC Glucose (mg/dL) 403 H (70-110) mg/dL Assessment and Plan Assessment: Acute on chronic hypoxemic and hypercapnic respiratory failure, secondary to acute exacerbation of chronic obstructive pulmonary disease. Acute tracheobronchitis, without evidence of pneumonia. Previous history of heavy tobacco use. Type 2 diabetes mellitus without complications. History of closed head injury. Plan: Plan dated 11/30/2022. The patient continues on oxygen therapy. He also continues on bronchodilators and corticosteroids. We will continue to follow, and make recommendations along the way. Labs, x-rays, and medications are reviewed. His chest x-ray does not show any acute process. We continue on GI and DVT prophylaxis. The patient should follow-up with his own riprap worker, after discharge. Time with Patient: Less than 30
[2022-11-30 16:34] LABS: Glucose,Whole Blood 232 mg/dL (70-110)
[2022-11-30] MEDS: methylPREDNISolone SOD SUCCI 40 MG/ML 1 ML VIAL IV SCH (16:41)
--- NOTE | 2022-11-30 17:01 | P.PN ---
Progress Note - Text Progress Note Date: 11/30/22 Chief Complaint: Short of breath This is a 57-year-old patient who follows with Dr. Romero Donahue. Chronic stable medical conditions include diabetes, hypertension, prior head injury from farming accident, creatinine aneurysm, anxiety. Patient stopped smoking 3 years ago. Patient presented increasing shortness of breath last 2 days. Some cough sputum does drain color. Perspiration. Slightly decreased appetite. Tired rundown. Patient had been on BiPAP this morning. Patient was transferred here from [facility]. Patient had been retaining CO2. PE was ruled out. Patient admitted with acute COPD exacerbation, acute hypoxic and hypercapnic respiratory failure, acute hypoxic encephalopathy and delirium. Started on bronchodilators steroids. November 30: Sitting up in a chair. Breathing is better. Decreased cough. Less wheezing. We'll cut back on IV Solu-Medrol. Remains on bronchodilators. Increase activity. Oral intake good. Accu-Cheks high because of Solu-Medrol. Extra insulin coverage given. Also patient's diet is changed to diabetic. Active Medications Acetaminophen (Acetaminophen Tab 325 Mg Tab) 650 mg PO Q4HR PRN PRN Reason: Mild Pain or Fever > 100.5 Last Admin: 11/30/22 10:23 Dose: 650 mg Albuterol/Ipratropium (Ipratropium-Albuterol 3 Ml Neb) 3 ml INHALATION RT-QID [facility] Last Admin: 11/30/22 15:48 Dose: 3 ml Albuterol/Ipratropium (Ipratropium-Albuterol 3 Ml Neb) 3 ml INHALATION RT-Q2H PRN PRN Reason: Shortness Of Breath Or Wheezing Alprazolam (Alprazolam 0.25 Mg Tab) 0.25 mg PO TID PRN PRN Reason: Anxiety Last Admin: 11/29/22 21:53 Dose: 0.25 mg Aripiprazole (Aripiprazole 10 Mg Tab) [address] [facility] Last Admin: 11/29/22 23:29 Dose: 10 mg Atorvastatin Calcium (Atorvastatin 20 Mg Tab) [address] [facility] Last Admin: 11/29/22 21:53 Dose: 20 mg Budesonide/Formoterol Fumarate (Symbicort 160-4.5 Mcg Inhaler) 2 puff INHALATION RT-BID [facility] Last Admin: 11/30/22 08:46 Dose: 2 puff Carvedilol (Carvedilol 6.25 Mg Tab) 6.25 mg PO BID-W/MEALS [facility] Last Admin: 11/30/22 16:41 Dose: 6.25 mg Dextrose/Water (Dextrose 50% Syringe 50 Ml) 25 ml IVP PER PROTOCOL PRN; Protocol PRN Reason: Hypoglycemia Dextrose/Water (Dextrose 50% Syringe 50 Ml) 50 ml IVP PER PROTOCOL PRN; Pro tocol PRN Reason: Hypoglycemia Doxycycline Monohydrate (Doxycycline 100 Mg Cap) 100 mg PO BID [facility]; Protocol Last Admin: 11/30/22 11:14 Dose: 100 mg Escitalopram Oxalate (Escitalopram 20 Mg Tab) 20 mg PO DAILY [facility] Last Admin: 11/30/22 08:14 Dose: 20 mg Finasteride (Finasteride 5 Mg Tab) 5 mg PO HS [facility] Last Admin: 11/29/22 21:53 Dose: 5 mg Heparin Sodium (Porcine) (Heparin Sodium,Porcine/Pf 5,000 Unit/0.5 Ml Syringe) 5,000 unit SQ Q8HR [facility] Last Admin: 11/30/22 16:41 Dose: 5,000 unit Insulin Aspart (Insulin Aspart (Novolog) 100 Unit/Ml Vial) 0 unit SQ AC-TID [facility]; Protocol Last Admin: 11/30/22 16:41 Dose: 4 unit Linagliptin (Linagliptin 5 Mg Tablet) 5 mg PO DAILY [facility] Last Admin: 11/30/22 08:15 Dose: 5 mg Losartan Potassium (Losartan 25 Mg Tab) 25 mg PO DAILY [facility] Last Admin: 11/30/22 08:15 Dose: 25 mg Metformin HCl (Metformin 500 Mg Tab) 500 mg PO BID [facility] Last Admin: 11/30/22 08:14 Dose: 500 mg Methylprednisolone Sodium Succinate (Methylprednisolone Sod Succi 40 Mg/Ml 1 Ml Vial) 40 mg IV Q8HR [facility] Last Admin: 11/30/22 16:41 Dose: 40 mg Montelukast Sodium (Montelukast 10 Mg Tab) [address] [facility] Last Admin: 11/29/22 22:00 Dose: 10 mg Naloxone HCl (Naloxone 0.4 Mg/Ml 1 Ml Vial) 0.2 mg IVP Q2M PRN PRN Reason: Opioid Reversal Non-Formulary Medication (Vibegron [Gemtesa]) [address] [facility] Last Admin: 04/30/23 21:56 Dose: Not Given Pantoprazole Sodium (Pantoprazole 40 Mg Tablet) 40 mg PO AC-BRKFST [facility] Last Admin: 11/30/22 06:45 Dose: 40 mg Pioglitazone HCl (Pioglitazone 15 Mg Tab) [address] [facility] Last Admin: 11/29/22 23:29 Dose: 15 mg Tamsulosin HCl (Tamsulosin 0.4 Mg Cap.Er.24h) 0.[address] [facility] Last Admin: 11/29/22 21:53 Dose: 0.4 mg Past medical history to include: COPD, diabetes, hypertension, head injury from farming accident, brain aneurysm, anxiety Social history: Lives alone. Started smoking at age of 17. Smoked for 37 years stopped in 2019. Smoked a pack and a half a day. No alcohol. Physical examination: VITAL SIGNS: 98.1, 82, 20, 128/55, 92% on 3 L GENERAL: BMI 33.6, up in a recliner, breathing better EYES: Pupils equal. Conjunctiva normal. HEENT: External appearance of nose and ears normal, oral cavity grossly normal. NECK: JVD not raised; masses not palpable. HEART: First and second heart sounds are normal; no edema. LUNGS: Respiratory rate increased; decreased breath sounds. ABDOMEN: Soft, nontender, liver spleen not palpable, no masses palpable. PSYCH: Alert and oriented x3; mood and affect normal. INVESTIGATIONS, reviewed in the clinical context: vBG pCO2 77 Assessment and plan: -Acute COPD exacerbation in a previous smoker: Better -Acute bronchitis. On doxycycline -Acute hypoxic hypercapnic respiratory failure -Acute metabolic encephalopathy from hypoxic with delirium at the other hospital: Better -Diabetes mellitus type 2, oral hypoglycemic, uncontrolled with hyperglycemia secondary to steroids Essential hypertension Depression and anxiety -GERD -Hyperlipidemia -BPH IV Solu-Medrol decreased to 40 mg every 8. Bronchodilators. . Doxycycline . 3 L nasal cannula. Increase activity. Better
[2022-11-30 20:39] LABS: Glucose,Whole Blood 189 mg/dL (70-110)
[2022-11-30] MEDS: FINASTERIDE 5 MG TAB PO SCH (22:18)
[2022-11-30] MEDS: PIOGLITAZONE 15 MG TAB PO SCH (22:18)
[2022-11-30] MEDS: ATORVASTATIN 20 MG TAB PO SCH (22:18)
[2022-11-30] MEDS: ARIPiprazole 10 MG TAB PO SCH (22:18)
[2022-11-30] MEDS: MONTELUKAST 10 MG TAB PO SCH (22:19)
[2022-11-30] MEDS: TAMSULOSIN 0.4 MG CAP.ER.24H PO SCH (22:19)
[2022-11-30] MEDS: NON FORMULARY DRUG (Vibegron [Gemtesa] 75 MG Tablet) PO SCH (22:19)
[2022-12-01] MEDS: methylPREDNISolone SOD SUCCI 40 MG/ML 1 ML VIAL IV SCH ×4 (01:38→23:44)
[2022-12-01] MEDS: HEPARIN SODIUM,PORCINE/PF 5,000 UNIT/0.5 ML SYRINGE SQ SCH ×4 (01:39→23:44)
[2022-12-01 06:11] LABS: Glucose,Whole Blood 169 mg/dL (70-110)
[2022-12-01] MEDS: INSULIN ASPART (NovoLOG) 100 UNIT/ML VIAL SQ SCH ×3 (06:48→17:28)
[2022-12-01] MEDS: carvediloL 6.25 MG TAB PO SCH ×2 (06:49→17:27)
[2022-12-01] MEDS: PANTOPRAZOLE 40 MG TABLET PO SCH (06:49)
[2022-12-01] MEDS: LINAGLIPTIN 5 MG TABLET PO SCH (08:46)
[2022-12-01] MEDS: ESCITALOPRAM 20 MG TAB PO SCH (08:46)
[2022-12-01] MEDS: DOXYCYCLINE 100 MG CAP PO SCH ×2 (08:46→21:45)
[2022-12-01] MEDS: LOSARTAN 25 MG TAB PO SCH (08:47)
[2022-12-01] MEDS: metFORMIN 500 MG TAB PO SCH ×2 (08:47→21:45)
[2022-12-01] MEDS: IPRATROPIUM-ALBUTEROL 3 ML NEB INHALATION SCH ×4 (08:53→21:25)
[2022-12-01] MEDS: SYMBICORT 160-4.5 MCG INHALER INHALATION SCH ×2 (08:53→21:25)
[2022-12-01 11:29] LABS: Glucose,Whole Blood 220 mg/dL (70-110)
--- NOTE | 2022-12-01 11:54 | P.PN ---
Subjective Progress Note Date: 12/01/22 Principal diagnosis: Shortness of breath. This is a 57-year-old white male with history of severe COPD, chronic hypoxic respiratory failure, patient normally sees Dr. Angel manzano for his underlying COPD, according to the patient he quit smoking over 3 years ago. Patient is maintained mostly on bronchodilators/inhalers at home, does not know the names of his inhalers, but he is not prednisone/steroids dependent. Patient was seen at [facility] with mostly a few days' history of increased shortness of breath cough and wheezing. His initial ABG at [place] showed a pCO2 of 111 pH of 7.11, patient was placed on BiPAP, and arrangements were made to transfer the patient down to [facility]. Apparently the patient had a CT angiogram of the chest while at [place], and it showed mostly COPD changes, no evidence of pulmonary embolism. When patient was transferred to our facility, apparently was placed on relatively high FiO2 and repeat ABG showed a pO2 of 283, pCO2 of 120 and pH of 7.18. Patient was placed on lower FiO2, repeat venous gas showed a pCO2 in the 77 range and pH of 7.35 patient was admitted to the regular medical floor, I saw the patient on nasal cannula, he is actually on 3 L nasal cannula with O2 saturation 91%, does not seem to be in any form of distress, does not seem to be obtunded, refusing to use his BiPAP, hence I recommended that we continue patient on nasal cannula for now, there is a BiPAP at bedside if necessary. And I recommended treatment with bronchodilators, and antibiotics. The rest of his labs including complete metabolic profile and CBC were basically unremarkable except for low platelets/99,000 Progress note dated 11/30/2022. 57-year-old male seen today in room 365. He was seen by my partner yesterday in consultation. The patient has a history of severe COPD, and sees one of the other pulmonary groups. Currently, the patient is on 3 L of oxygen. He is feeling better. He is able to speak in full sentences. Laboratory data today includes a glucose of 195. Venous blood gas shows a pCO2 of 77 and a pH 7.35. Chest x-ray shows no acute process. There is mild cardiomegaly. The patient was transferred to the hospital, from an outside community Hospital. Progress note dated 12/01/2022. 57-year-old male, seen in room 365. The patient was seen by my partner in consultation 2 days ago. The patient's on 3 L of oxygen. He's not receiving any IV fluids. He's feeling pretty much back to normal, and is talking about being discharged. We will await the input from the hospital service. From the pulmonary service, it appears that the patient is very stable. No new laboratory data today than a glucose of 169. Objective - Vital Signs Vital signs: Vital Signs Temp 97.4 F L 12/01/22 11:35 Pulse 80 12/01/22 11:50 Resp 18 12/01/22 11:50 BP 118/70 12/01/22 11:35 Pulse Ox 91 L 12/01/22 11:35 FiO2 50 12/01/22 08:53 Intake & Output 11/30/22 12/01/22 12/01/22 18:59 06:59 18:59 Intake Total 118 240 Output Total 120 Balance -2 240 Intake: Oral 118 240 Output: Urine 120 Other: Voiding Method External Catheter Toilet Toilet Bedside Commode Bedside Commode # Voids 2 2 2 # Bowel Movements 1 - Exam No acute distress, oriented 3. No conversational dyspnea or use of accessory m uscles. The patient is currently on 3 L of oxygen. HEENT examination is grossly unremarkable. Neck supple. Full range of motion. No adenopathy thyromegaly or neck vein distention. Cardiovascular examination reveals regular rhythm rate. S1-S2 normal. No S3 or S4. No discernible murmur noted. Heart sounds are distant. Heart rate 80 bpm. Lungs reveal scattered expiratory rhonchi and wheezes. Breath sounds are equal. No crackles are appreciated. His 3 L saturation is 93 %. Abdomen soft bowel sounds are heard. No masses or tenderness. Extremities are intact. No cyanosis clubbing or edema. Skin is without rash or lesion. Neurologic examination is brief but nonfocal. - Labs Labs: Abnormal Lab Results - Last 24 Hours (Table) 11/30/22 11/30/22 12/01/22 Range/Units 16:33 20:37 06:10 POC Glucose (mg/dL) 232 H 189 H 169 H (70-110) mg/dL 12/01/22 Range/Units 11:28 POC Glucose (mg/dL) 220 H (70-110) mg/dL Assessment and Plan Assessment: Acute on chronic hypoxemic and hypercapnic respiratory failure, secondary to acute exacerbation of chronic obstructive pulmonary disease. Acute tracheobronchitis, without evidence of pneumonia. Previous history of heavy tobacco use. Type 2 diabetes mellitus without complications. History of closed head injury. Plan: Plan dated 11/30/2022. The patient continues on oxygen therapy. He also continues on bronchodilators and corticosteroids. We will continue to follow, and make recommendations along the way. Labs, x-rays, and medications are reviewed. His chest x-ray does not show any acute process. We continue on GI and DVT prophylaxis. The patient should follow-up with his own knowledge management consultant, after discharge. Plan dated 12/01/2022. The patient is seen today in room 365. He's excited about the possibility of discharge. He's not receiving any IV fluids. He is getting O2 at 3 L. He will follow-up with his outside knowledge management consultant after discharge. Labs, x-rays, and medications are reviewed. From the pulmonary standpoint, the patient could be discharged. Time with Patient: Less than 30
[2022-12-01 16:37] LABS: Glucose,Whole Blood 311 mg/dL (70-110)
[2022-12-01 19:45] LABS: Glucose,Whole Blood 271 mg/dL (70-110)
[2022-12-01] MEDS: TAMSULOSIN 0.4 MG CAP.ER.24H PO SCH (21:45)
[2022-12-01] MEDS: ATORVASTATIN 20 MG TAB PO SCH (21:45)
[2022-12-01] MEDS: PIOGLITAZONE 15 MG TAB PO SCH (21:45)
[2022-12-01] MEDS: FINASTERIDE 5 MG TAB PO SCH (21:45)
[2022-12-01] MEDS: MONTELUKAST 10 MG TAB PO SCH (21:45)
[2022-12-01] MEDS: ARIPiprazole 10 MG TAB PO SCH (21:45)
[2022-12-01] MEDS: NON FORMULARY DRUG (Vibegron [Gemtesa] 75 MG Tablet) PO SCH (21:49)
[2022-12-01] MEDS: ALPRAZolam 0.25 MG TAB PO PRN (23:44)
--- NOTE | 2022-12-02 00:44 | PN ---
PROGRESS NOTE SUBJECTIVE: A 57-year-old white male, COPD exacerbation, hypoxemia. He is back to his baseline. He is on 3 to 4 L of oxygen, worse normally at home. IV steroids have been discontinued. He will go back to oral medicines or antibiotics. PT, OT. Possible discharge home tomorrow. OBJECTIVE: LUNGS: Transmitted upper sounds. CARDIOVASCULAR: S1, S2. HEMATOLOGY: Negative for Hom[place]. PSYCH: Fair mood and affect. ASSESSMENT: Chronic obstructive pulmonary disease exacerbation, acute hypoxemic respiratory failure, gastroesophageal reflux disease. Prognosis is guarded. Continue current treatments. Wean steroids. Follow up as tolerated. MMODL / IJN: [id number] /
[2022-12-02 05:51] LABS: Glucose,Whole Blood 210 mg/dL (70-110)
[2022-12-02] MEDS: INSULIN ASPART (NovoLOG) 100 UNIT/ML VIAL SQ SCH ×3 (07:04→16:54)
[2022-12-02] MEDS: PANTOPRAZOLE 40 MG TABLET PO SCH (07:04)
[2022-12-02] MEDS: carvediloL 6.25 MG TAB PO SCH ×2 (07:04→16:54)
[2022-12-02] MEDS: IPRATROPIUM-ALBUTEROL 3 ML NEB INHALATION SCH ×3 (07:50→15:37)
[2022-12-02] MEDS: SYMBICORT 160-4.5 MCG INHALER INHALATION SCH (08:18)
[2022-12-02] MEDS: LOSARTAN 25 MG TAB PO SCH (09:58)
[2022-12-02] MEDS: HEPARIN SODIUM,PORCINE/PF 5,000 UNIT/0.5 ML SYRINGE SQ SCH ×2 (09:58→15:23)
[2022-12-02] MEDS: LINAGLIPTIN 5 MG TABLET PO SCH (09:59)
[2022-12-02] MEDS: ESCITALOPRAM 20 MG TAB PO SCH (09:59)
[2022-12-02] MEDS: methylPREDNISolone SOD SUCCI 40 MG/ML 1 ML VIAL IV SCH ×2 (09:59→15:23)
[2022-12-02] MEDS: metFORMIN 500 MG TAB PO SCH (09:59)
[2022-12-02] MEDS: DOXYCYCLINE 100 MG CAP PO SCH (10:00)
[2022-12-02 11:42] LABS: Glucose,Whole Blood 226 mg/dL (70-110)
--- NOTE | 2022-12-02 13:39 | P.PN ---
Subjective Progress Note Date: 12/02/22 Principal diagnosis: Shortness of breath. This is a 57-year-old white male with history of severe COPD, chronic hypoxic respiratory failure, patient normally sees Dr. Angel manzano for his underlying COPD, according to the patient he quit smoking over 3 years ago. Patient is maintained mostly on bronchodilators/inhalers at home, does not know the names of his inhalers, but he is not prednisone/steroids dependent. Patient was seen at [facility] with mostly a few days' history of increased shortness of breath cough and wheezing. His initial ABG at [place] showed a pCO2 of 111 pH of 7.11, patient was placed on BiPAP, and arrangements were made to transfer the patient down to [facility]. Apparently the patient had a CT angiogram of the chest while at [place], and it showed mostly COPD changes, no evidence of pulmonary embolism. When patient was transferred to our facility, apparently was placed on relatively high FiO2 and repeat ABG showed a pO2 of 283, pCO2 of 120 and pH of 7.18. Patient was placed on lower FiO2, repeat venous gas showed a pCO2 in the 77 range and pH of 7.35 patient was admitted to the regular medical floor, I saw the patient on nasal cannula, he is actually on 3 L nasal cannula with O2 saturation 91%, does not seem to be in any form of distress, does not seem to be obtunded, refusing to use his BiPAP, hence I recommended that we continue patient on nasal cannula for now, there is a BiPAP at bedside if necessary. And I recommended treatment with bronchodilators, and antibiotics. The rest of his labs including complete metabolic profile and CBC were basically unremarkable except for low platelets/99,000 Progress note dated 11/30/2022. 57-year-old male seen today in room 365. He was seen by my partner yesterday in consultation. The patient has a history of severe COPD, and sees one of the other pulmonary groups. Currently, the patient is on 3 L of oxygen. He is feeling better. He is able to speak in full sentences. Laboratory data today includes a glucose of 195. Venous blood gas shows a pCO2 of 77 and a pH 7.35. Chest x-ray shows no acute process. There is mild cardiomegaly. The patient was transferred to the hospital, from an outside community Hospital. Progress note dated 12/01/2022. 57-year-old male, seen in room 365. The patient was seen by my partner in consultation 2 days ago. The patient's on 3 L of oxygen. He's not receiving any IV fluids. He's feeling pretty much back to normal, and is talking about being discharged. We will await the input from the hospital service. From the pulmonary service, it appears that the patient is very stable. No new laboratory data today than a glucose of 169. Progress note dated 12/02/2022. 57-year-old male again, seen in room 365. The patient is doing well. He is currently on 3 L. He was hoping to be discharged yesterday. He states his breathing is much at baseline. He denies any excessive cough, wheezing, production, chest tightness, or hemoptysis. No new laboratory data today. The blood glucose is 226. The patient will follow up with his sound installation worker, after discharge. Objective - Vital Signs Vital signs: Vital Signs Temp 98.2 F 12/02/22 12:26 Pulse 84 12/02/22 12:26 Resp 20 12/02/22 12:26 BP 144/74 12/02/22 12:26 Pulse Ox 92 L 12/02/22 12:26 FiO2 50 12/01/22 08:53 Intake & Output 12/01/22 12/02/22 12/02/22 18:59 06:59 18:59 Intake Total 420 500 598 Balance 420 500 598 Intake: Oral 420 500 598 Other: Voiding Method Toilet Toilet Toilet Bedside Commode Bedside Commode Bedside Commode # Voids 1 3 # Bowel Movements 2 1 - Exam No acute distress, oriented 3. No conversational dyspnea or use of accessory muscles. The patient is currently on 3 L of oxygen. HEENT examination is grossly unremarkable. Neck supple. Full range of motion. No adenopathy thyromegaly or neck vein distention. Cardiovascular examination reveals regular rhythm rate. S1-S2 normal. No S3 or S4. No discernible murmur noted. Heart sounds are distant. Heart rate 75 bpm. Lungs reveal scattered expiratory rhonchi and wheezes. Breath sounds are equal. No crackles are appreciated. His 3 L saturation is 93%. Breath sounds are much improved. Abdomen soft bowel sounds are heard. No masses or tenderness. Extremities are intact. No cyanosis clubbing or edema. Skin is without rash or lesion. Neurologic examination is brief but nonfocal. - Labs Labs: Abnormal Lab Results - Last 24 Hours (Table) 12/01/22 12/01/22 12/02/22 Range/Units 16:35 19:43 05:50 POC Glucose (mg/dL) 311 H 271 H 210 H (70-110) mg/dL 12/02/22 Range/Units 11:40 POC Glucose (mg/dL) 226 H (70-110) mg/dL Assessment and Plan Assessment: Acute on chronic hypoxemic and hypercapnic respiratory failure, secondary to acute exacerbation of chronic obstructive pulmonary disease. Acute tracheobronchitis, without evidence of pneumonia. Previous history of heavy tobacco use. Type 2 diabetes mellitus without complications. History of closed head injury. Plan: Plan dated 11/30/2022. The patient continues on oxygen therapy. He also continues on bronchodilators and corticosteroids. We will continue to follow, and make recommendations along the way. Labs, x-rays, and medications are reviewed. His chest x-ray does not show any acute process. We continue on GI and DVT prophylaxis. The patient should follow-up with his own sound installation worker, after discharge. Plan dated 12/01/2022. The patient is seen today in room 365. He's excited about the possibility of discharge. He's not receiving any IV fluids. He is getting O2 at 3 L. He will follow-up with his outside sound installation worker after discharge. Labs, x-rays, and medications are reviewed. From the pulmonary standpoint, the patient could be discharged. Plan dated 12/02/2022. The patient appears be doing much better. The patient states that he is pretty much at baseline. He is hoping to be discharged home today. He was actually hoping to be discharged home yesterday. Labs, x-rays, and medications are reviewed. The patient will follow-up with his outside sound installation worker after discharge. The hospital doctor will order his discharge medications. No additional recommendations are made. Time with Patient: Less than 30
[2022-12-02 15:23] VITALS: RESP 18; TEMP 98
[2022-12-02 15:49] VITALS: PULSE 76
[2022-12-02 16:32] LABS: Glucose,Whole Blood 201 mg/dL (70-110)
[2022-12-02 16:53] VITALS: BP 113/65
== END 2022-12-02 18:00 | disposition home or self-care (01) | DRG 190 ==
LOC: EC 22:56 → 3SCARD 11-29 00:01
PROVIDERS: ADMIT Family Medicine; ATTEND Family Medicine
PROC: 5A09357 Assistance with Respiratory Ventilation, Less than 24 Consecutive Hours, Continuous Positive Airway Pressure (ICD-10-PCS; principal; 2022-11-29)
DX: J44.1 Chronic obstructive pulmonary disease with (acute) exacerbation (principal); G93.41 Metabolic encephalopathy; J96.21 Acute and chronic respiratory failure with hypoxia; J96.22 Acute and chronic respiratory failure with hypercapnia; G93.1 Anoxic brain damage, not elsewhere classified; I67.1 Cerebral aneurysm, nonruptured; D69.6 Thrombocytopenia, unspecified; I11.9 Hypertensive heart disease without heart failure; F32.A Depression, unspecified; E11.65 Type 2 diabetes mellitus with hyperglycemia; J44.0 Chronic obstructive pulmonary disease with (acute) lower respiratory infection; F41.9 Anxiety disorder, unspecified; E78.5 Hyperlipidemia, unspecified; K21.9 Gastro-esophageal reflux disease without esophagitis; N40.0 Benign prostatic hyperplasia without lower urinary tract symptoms; T38.0X5A Adverse effect of glucocorticoids and synthetic analogues, initial encounter; J20.9 Acute bronchitis, unspecified; Z53.29 Procedure and treatment not carried out because of patient's decision for other reasons; Z99.81 Dependence on supplemental oxygen; Z28.310 Unvaccinated for COVID-19; Z87.820 Personal history of traumatic brain injury; Z88.0 Allergy status to penicillin; Z79.51 Long term (current) use of inhaled steroids; Z87.891 Personal history of nicotine dependence; Z79.899 Other long term (current) drug therapy; Z79.84 Long term (current) use of oral hypoglycemic drugs; Z87.01 Personal history of pneumonia (recurrent); Z82.5 Family history of asthma and other chronic lower respiratory diseases
CPT/HCPCS: 71045; 82803; 94640; 94660; 94760; 99285